=== PATIENT | female | born 1930 | race Caucasian/White ===

== ENCOUNTER 2016-10-22 07:56 | Day surgery (SDC) | payer MEDICARE, OTHER | END 2016-10-22 13:15 | disposition home or self-care (01) | LOC: RAD.S 07:56 → EDSTATUS 10:00 → RAD.S 13:15 | DX: S22.088A Other fracture of T11-T12 vertebra, initial encounter for closed fracture (principal); S32.018A Other fracture of first lumbar vertebra, initial encounter for closed fracture; W19.XXXA Unspecified fall, initial encounter; E78.5 Hyperlipidemia, unspecified; I10 Essential (primary) hypertension; M10.9 Gout, unspecified ==